=== PATIENT | female | born 1995 | race African-American/Black ===

== ENCOUNTER → 2017-01-28 | Outpatient (CLI) | payer OTHER ==
[~2017-01-28] MED LIST: ONDA4TAB8 PO; SULF1TAB35 PO; TRM50T PO
--- NOTE | 2017-01-28 15:52 | Diagnostic Imaging Report ---
PROCEDURE: US PELVIC (NON OB) TECHNIQUE: Multiple real-time grayscale images were obtained over the pelvis in various projections transabdominally. INDICATION: Pelvic and perineal pain. COMPARISON: None. DISCUSSION: Transabdominal and transvaginal sonographic evaluation of the pelvis was performed. The uterus is normal in echotexture and size measuring 8.0 x 3.9 x 5.7 cm. Normal endometrial thickness measuring 0.9 cm. The ovaries appear normal in echotexture and size bilaterally with normal color Doppler blood flow. The right ovary measures 3.7 x 3.6 x 1.8 cm. The left ovary measures 3.7 x 3.3 x 2.6 cm. Normal follicular activity is present within the ovaries. No abnormal adnexal mass or fluid. IMPRESSION: 1. Unremarkable pelvic ultrasound. The seating and mobility technologist attempted to call reports to the doctor's office though no one was available until Tuesday to take the report per the technologist notes. Report was faxed to office of Winnie Lemon APRN, @ 3:13 PM/randi. Dictated by: Dictated on workstation # [id number]
== END ==
LOC: RAD 13:16
PROVIDERS: ATTEND Nurse Practitioner Family
DX: R10.2 Pelvic and perineal pain (principal)
CPT/HCPCS: 76856